=== PATIENT | male | born 2000 | race Caucasian/White ===

== ENCOUNTER 2020-03-10 20:40 | Observation (INO) | payer OTHER ==
[~2020-03-10] VITALS: Ht 185.4 cm; Wt 106.4 kg
[2020-03-10] MEDS ORDERED: MORPHINE SULFATE 4 MG/ML, 1ML IVPush PRN (21:30)
[2020-03-10] MEDS ORDERED: ONDANSETRON 2MG/ML, 2ML IVPush ONE (21:30)
[2020-03-10] MEDS ORDERED: SODIUM CHLORIDE FLUSH 10ML SYR IVF ONE (21:30)
[2020-03-10] MEDS ORDERED: SODIUM CHLORIDE 0.9% 1,000ML IVBOLUS ONE (21:30)
[2020-03-10] MEDS ORDERED: MORPHINE SULFATE 4 MG/ML, 1ML ONE (21:42)
[2020-03-10] MEDS ORDERED: ONDANSETRON 2MG/ML, 2ML ONE (21:42)
[2020-03-10 21:53] LABS: BASOPHILS # (AUTO) 0.01 x10^3/uL (0-0.3); BASOPHILS % (AUTO) 0 % (0-1); EOSINOPHILS # (AUTO) 0.16 x10^3/uL (0-0.8); EOSINOPHILS % (AUTO) 1 % (1-7); LYMPHOCYTES % (AUTO) 4 % (22-44); MD NO; MEAN CORPUSCULAR HEMOGLOBIN 29.1 pg (27.5-34.5); MEAN CORPUSCULAR HGB CONC 32.9 g/dL (33.2-36.2); MEAN CORPUSCULAR VOLUME 88.3 fL (81-97); MEAN PLATELET VOLUME 9.2 fL (7.4-10.4); MONOCYTES # (AUTO) 0.29 x10^3/uL (0-1.4); MONOCYTES % (AUTO) 2 % (2-9); NEUTROPHILS # (AUTO) 14.59 x10^3/uL (1.8-8.0); NEUTROPHILS % (AUTO) 93 % (42-75); PLATELET COUNT 304 x10^3/uL (130-400); RED BLOOD COUNT 5.44 x10^6/uL (4.38-5.82); RED CELL DISTRIBUTION WIDTH 12.8 % (9.4-14.8)
--- NOTE | 2020-03-10 21:53 | NUR ---
PT IN GOWN IN [facility]. PIV ACCESS ESTABLISHED AND BLOOD DRAWN AT THIS TIME. PT MEDICATED PER SEP. PT VERBALIZES UNDERSTANDING OF ER PROCESS AND POC AND HAS CALL LIGHT WITHIN REACH. PT ATTACHED TO ALL VS MONITORS. VSS AT THIS TIME. AWAITING CAT SCAN OF PT ABDOMEN.
[2020-03-10 22:04] LABS: ALANINE AMINOTRANSFERASE 47 U/L (12-78); ALBUMIN 4.5 g/dL (3.4-5.0); ANION GAP 8 mmol/L (5-15); CALCIUM 9.3 mg/dL (8.5-10.1); CHLORIDE 109 mmol/L (98-107); CREATININE 1.13 mg/dL (0.7-1.3)
[2020-03-10 22:06] LABS: ALKALINE PHOSPHATASE 65 U/L (45-117); BILIRUBIN,TOTAL 0.8 mg/dL (0.2-1.0); TOTAL PROTEIN 8.5 g/dL (6.4-8.2)
[2020-03-10] MEDS ORDERED: METOCLOPRAMIDE 5 MG/ML, 2ML ONE (22:28)
[2020-03-10] MEDS ORDERED: METOCLOPRAMIDE 5 MG/ML, 2ML IVPush ONE (22:30)
--- NOTE | 2020-03-10 22:32 | NUR ---
PT TO CT VIA [facility] AT THIS TIME.
[2020-03-10] MEDS ORDERED: OMNIPAQUE 350 MG/ML, 100ML BOTTLE ONE (22:40)
[2020-03-10] MEDS ORDERED: CEFOTETAN PMX 1GM/50ML 50 ML ONE (22:49)
[2020-03-10] MEDS ORDERED: CEFOTETAN PMX 1GM/50ML 50 ML IV ONE (23:00)
--- NOTE | 2020-03-10 23:01 | NUR ---
pt reports improvement with antiemetic medications. pt resting comfortably in bed with call light within reach. vss and updated in emr. iv abx initiated per sep.
[2020-03-10] MEDS ORDERED: SODIUM CHLORIDE 0.9% 1,000 ML IV SCH (23:37)
--- NOTE | 2020-03-10 23:57 | NUR ---
REPORT OF PT GIVEN TO RNMARCK. ALL QUESTIONS ANSWERED. PT TRANSFERRED TO FLOOR VIA [place] WITH [facility] AT THIS TIME. PT DENIES ANY OTHER NEEDS PRIOR TO TRANSPORT.
[2020-03-11] MEDS ORDERED: METRONIDAZOLE PMX 500MG/100ML 100 ML IV SCH
[2020-03-11] MEDS ORDERED: ACETAMINOPHEN 325 MG TABLET PO PRN
[2020-03-11] MEDS ORDERED: CEFTRIAXONE PMX 1GM/50ML 50 ML IV SCH
[2020-03-11] MEDS ORDERED: morphine SULFATE 10 MG/ML, 1ML IVPush PRN
[2020-03-11] MEDS ORDERED: CEFOTETAN MC SCH (00:30)
[2020-03-11] MEDS ORDERED: CEFTRIAXONE MC SCH (00:30)
[2020-03-11 00:41] VITALS: BP 120/71
[2020-03-11 02:14] VITALS: BP 120/70
[2020-03-11] MEDS ORDERED: BUPIVACAINE/PF-EPI 0.5% 1:200K ONE (06:02)
[2020-03-11 06:54] LABS: BASOPHILS # (AUTO) 0.04 x10^3/uL (0-0.3); BASOPHILS % (AUTO) 0 % (0-1); EOSINOPHILS # (AUTO) 0.14 x10^3/uL (0-0.8); EOSINOPHILS % (AUTO) 1 % (1-7); LYMPHOCYTES % (AUTO) 19 % (22-44); MD NO; MEAN CORPUSCULAR HEMOGLOBIN 29.3 pg (27.5-34.5); MEAN CORPUSCULAR HGB CONC 33.2 g/dL (33.2-36.2); MEAN PLATELET VOLUME 9.7 fL (7.4-10.4); MONOCYTES # (AUTO) 1.17 x10^3/uL (0-1.4); MONOCYTES % (AUTO) 8 % (2-9); NEUTROPHILS # (AUTO) 11.33 x10^3/uL (1.8-8.0); NEUTROPHILS % (AUTO) 72 % (42-75); PLATELET COUNT 269 x10^3/uL (130-400); RED BLOOD COUNT 5.06 x10^6/uL (4.38-5.82); RED CELL DISTRIBUTION WIDTH 12.6 % (9.4-14.8)
[2020-03-11] MEDS ORDERED: MIDAZOLAM 1 MG/ML, 2ML ONE (06:55)
[2020-03-11 07:05] LABS: ANION GAP 7 mmol/L (5-15); CHLORIDE 111 mmol/L (98-107); CREATININE 1.01 mg/dL (0.7-1.3)
[2020-03-11] MEDS ORDERED: FENTANYL PF 250 MCG/5ML ONE (07:36)
[2020-03-11] MEDS ORDERED: KETOROLAC 30 MG/1 ML IV PRN (08:00)
[2020-03-11] MEDS ORDERED: ONDANSETRON 2MG/ML, 2ML IVPush PRN ×2 (08:00)
[2020-03-11] MEDS ORDERED: hydrALAzine 20 MG/ML, 1ML IV PRN (08:00)
[2020-03-11] MEDS ORDERED: LABETALOL 5MG/ML, 20ML IV PRN (08:00)
[2020-03-11] MEDS ORDERED: PROMETHAZINE 25 MG/ML, 1ML IV PRN (08:00)
[2020-03-11] MEDS ORDERED: FENTANYL PF 100 MCG/2ML IV PRN (08:00)
[2020-03-11] MEDS ORDERED: ALBUTEROL SULFATE 2.5 MG/3 ML NPPB PRN (08:00)
[2020-03-11] MEDS ORDERED: MEPERIDINE/PF 25MG/0.5ML IVPush PRN (08:00)
[2020-03-11] MEDS ORDERED: OXYcodone 5 MG/5 ML ORAL.SOL UDC PO PRN (08:00)
[2020-03-11] MEDS ORDERED: DIAZEPAM 5 MG/ML, 2ML IV PRN ×2 (08:00)
[2020-03-11] MEDS ORDERED: METOCLOPRAMIDE 5 MG/ML, 2ML IV PRN (08:00)
[2020-03-11] MEDS ORDERED: HYDROmorphone 1 MG/ML, 1ML INJ IV PRN (08:00)
[2020-03-11] MEDS ORDERED: BUPIVACAINE/PF-EPI 0.5% 1:200K INFIL ONE (08:15)
[2020-03-11] MEDS ORDERED: OXYcodone 5 MG/5 ML ORAL.SOL UDC ONE (08:41)
[2020-03-11] MEDS ORDERED: SENNA/DOCUSATE TABLET PO SCH (09:00)
[2020-03-11 09:36] VITALS: BP 115/69
[2020-03-11] MEDS ORDERED: CEFOTETAN PMX 1GM/50ML 50 ML IV SCH (11:00)
[2020-03-11] MEDS ORDERED: CEFAZOLIN 1,000 MG ONE (11:19)
[2020-03-11] MEDS ORDERED: DEXAMETHASONE 4 MG/ML, 1ML ONE (11:19)
[2020-03-11] MEDS ORDERED: ROCURONIUM 10MG/ML,5ML ONE (11:19)
[2020-03-11] MEDS ORDERED: SUCCINYLCHOLINE 20 MG/ML, 10ML ONE (11:19)
[2020-03-11] MEDS ORDERED: ONDANSETRON 2MG/ML, 2ML ONE (11:19)
[2020-03-11] MEDS ORDERED: KETOROLAC 30 MG/1 ML ONE (11:19)
[2020-03-11] MEDS ORDERED: PROPOFOL 10 MG/ML, 20ML ONE (11:19)
[2020-03-11] MEDS: HYDROcodone/APAP 5/325 TABLET PO PRN ×2 (11:59→15:42)
[2020-03-11 13:18] VITALS: BP 134/73
[2020-03-11] MEDS ORDERED: SENN-193 PO (15:17)
[2020-03-11] MEDS ORDERED: HYDR-3237 PO (15:17)
== END 2020-03-11 16:00 | disposition home or self-care (01) ==
LOC: ED 23:12 → EDIP 23:21 → INTOOBSV 23:21 → 4NE 23:25
PROVIDERS: ADMIT Family Medicine; ATTEND Family Medicine
DX: Z03.818 Encounter for observation for suspected exposure to other biological agents ruled out (principal); K35.30 Acute appendicitis with localized peritonitis, without perforation or gangrene; R65.10 Systemic inflammatory response syndrome (SIRS) of non-infectious origin without acute organ dysfunction; R11.2 Nausea with vomiting, unspecified
CPT/HCPCS: 36415; 44970; 74177; 80048; 80053; 83690; 85025; 87635; 88304; 96361; 96365; 96366; 96367; 96375; 99285; G0378; J0330; J0690; J0696; J1100; J1885; J2250; J2270; J2405; J2704; J2765; J3010; J3490; J7030; Q9967